=== PATIENT | female | born 1995 | race Caucasian/White ===

== ENCOUNTER → 2021-03-22 | Outpatient (CLI) | payer OTHER ==
[2021-03-23 07:04] LABS: Prolactin 14.6 ng/mL (2.8-29.2)
[2021-03-23 07:05] LABS: Follicle Stimulating Hormone 2.3 mIU/mL; Luteinizing Hormone 4.8 mIU/mL
== END | disposition home or self-care (01) ==
LOC: LABWHC1 16:22
PROVIDERS: ATTEND Obstetrics & Gynecology
DX: R68.82 Decreased libido (principal)
CPT/HCPCS: 36415; 82670; 83001; 83002; 84144; 84146; 84403